=== PATIENT | female | born 1975 | race Caucasian/White ===

== ENCOUNTER 2019-05-28 21:33 | Inpatient (IN) | payer OTHER ==
--- NOTE | 2019-05-28 21:51 | PDOC ---
History of Present Illness - General Stated Complaint: SYNCOPY Time Seen by Provider: 05/28/19 21:50 History Source: Patient Exam Limitations: No Limitations - History of Present Illness Initial Comments: Pt is a 43 yo F, with PMH of prolonged QT (AICD, post V fib arrest 2014), who is presenting via EMS from home after a syncopal episode. Pt is accompanied by her family, who state the pt said "I don't feel well" and then fell to the ground, with 1-2 minutes of generalized shaking, incontinence, and short period of confusion. Pt has never had a seizure, but states she has been taking "about 4 doses of wellbutrin and prozac for an energy boost today," which she has been buying online. Pt has not been compliant with her heart medications ("taking toprol from a friend") and has not seen cardiology since her AICD placement. Pt denies any recent fevers/chills, headache, vision changes, chest pain, palpitations, SOB, nausea/vomiting, abdominal pain, urinary symptoms, diarrhea/ constipation, or leg swelling. Allergies: NKDA PCP: None Cards: [facility] Social: Pt denies any cigarette, alcohol, or illicit drug use. Pt denies any recent travel or sick contacts. Surgical: no relevant history. Family: no relevant history. 05/28/19 23:36 05/29/19 00:02 Past History - Travel Traveled outside of the country in the last 30 days: No Close contact w/someone who was outside of country & ill: No - Past Medical History Allergies/Adverse Reactions: Allergies Allergy/AdvReac Type Severity Reaction Status Date / Time No Known Allergies Allergy Verified 05/08/15 10:08 Home Medications: Ambulatory Orders Amiodarone HCl 200 mg PO BID 05/08/15 Metoprolol Succinate [Toprol XL -] 50 mg PO DAILY 05/08/15 Acetaminophen/Caffeine/Butalb [Fioricet -] 1 tab PO Q6H #28 tablet 05/09/15 Cefuroxime Axetil [Ceftin -] 250 mg PO BID #7 tablet 05/09/15 Seizures: No - Surgical History Cardiac Surgery: Yes (ICD) - Immunization History Immunization Up to Date: Yes - Psycho Social/Smoking Cessation Hx Smoking History: Never smoked Have you smoked in the past 12 months: No If you are a former smoker, when did you quit?: 6 years ago 'Breaking Loose' booklet given: 05/08/15 Hx Alcohol Use: No Drug/Substance Use Hx: No Substance Use Type: None Hx Substance Use Treatment: No Cardiac Specific PMH - Complaint Specific PMHX Angina: No Cardiac Arrhythmia: Yes (prolonged QT) Cardiac Stent: No Myocardial Infarction: No Pacemaker: No (AICD) Review of Systems - Review of Systems Able to Perform ROS?: Yes Is the patient limited [place] proficient: No Constitutional: Yes: Weight Stable. No: Chills, Diaphoresis, Fever, Loss of Appetite, Malaise, Weakness HEENTM: No: Recent change in vision, Nose Congestion, Throat Pain, Throat Swelling, Difficulty Swallowing Respiratory: No: Cough, Orthopnea, Shortness of Breath Cardiac (ROS): Yes: Syncope. No: Chest Pain, Edema, Irregular Heart Rate, Lightheadedness, Palpitations, Chest Tightness ABD/GI: No: Constipated, Diarrhea, Nausea, Poor Appetite, Poor Fluid Intake, Vomiting, Abdominal cramping : No: Burning, Dysuria, Frequency, Pain, Urgency Musculoskeletal: No: Back Pain, Joint Pain, Muscle Pain, Muscle Weakness Integumentary: No: Rash Neurological: Yes: See HPI, Seizure (possible, see HPI). No: Headache, Numbness , Weakness, Unsteady Gait, Dizziness Psychiatric: No: Sleep Pattern Change, Change in Appetite Endocrine: No: Increased Urine, Change in Weight Hematologic/Lymphatic: No: Anemia, Blood Clots, Easy Bleeding, Easy Bruising All Other Systems: Reviewed and Negative *Physical Exam - Vital Signs Last Vital Signs Temp Pulse Resp BP Pulse Ox 98.1 F 86 18 134/85 99 05/28/19 22:09 05/28/19 22:09 05/28/19 22:09 05/28/19 22:09 05/28/19 22:09 - Physical Exam Comments: Vitals stable, pt afebrile. Pt in NAD; thin body habitus. Pt alert and oriented x3. medical billing assistant generally intact, muscular strength and sensation intact. B/l hand tremors and tongue fasciculation No midline spinal tenderness, step-offs, or crepitus. Head normocephalic, atraumatic. Eyes PERRLA, EOMI. Oropharynx without erythema or exudates, no LAD b/l. No nasal congestion. Hearing intact. Clear heart sounds, S1/S2, no JVD, b/l pedal edema, or heart murmur. AICD on L axillary chest wall. Clear lung sounds, no respiratory distress, wheezes, crackles, or accessory muscle use. No abdominal or CVA tenderness to palpation, no rebound, no guarding. Abdomen soft, non-distended, and with normoactive bowel sounds. Skin without jaundice or rash. 05/29/19 00:42 ED Treatment Course - LABORATORY CBC & Chemistry Diagram: 05/28/19 22:15 05/28/19 22:15 - ADDITIONAL ORDERS Additional order review: Laboratory Results 05/28/19 05/28/19 05/28/19 22:55 22:55 22:15 PT with INR INR Sodium Potassium Chloride Carbon Dioxide Anion Gap BUN Creatinine Est GFR (CKD-EPI)AfAm Est GFR (CKD-EPI)NonAf POC Glucometer Random Glucose Calcium Magnesium Total Bilirubin AST ALT Alkaline Phosphatase Creatine Kinase Troponin I Total Protein Albumin Serum , Qual Negative Urine Color Yellow Urine Appearance Clear Urine pH 7.0 Ur Specific [place] 1.020 Urine Protein Negative Urine Glucose (UA) Negative Urine Ketones Negative Urine Blood Negative Urine Nitrite Negative Urine Bilirubin Negative Urine Urobilinogen 0.2 Ur Leukocyte Esterase Trace Opiates Screen Negative Methadone Screen Negative Barbiturate Screen Negative Phencyclidine Screen Negative Ur Amphetamines Screen Negative MDMA (Ecstasy) Screen Positive A* Benzodiazepines Screen Negative Cocaine Screen Negative U Marijuana (THC) Screen Negative 05/28/19 05/28/19 05/28/19 22:15 22:15 22:15 PT with INR 11.60 INR 0.98 Sodium 134 L Potassium 4.1 Chloride 99 Carbon Dioxide 28 Anion Gap 7 L BUN 11.8 Creatinine 0.8 Est GFR (CKD-EPI)AfAm 106.13 Est GFR (CKD-EPI)NonAf 91.57 POC Glucometer Random Glucose 121 H Calcium 7.9 L Magnesium 2.1 Total Bilirubin 0.2 AST 18 ALT 13 Alkaline Phosphatase 117 Creatine Kinase 102 Troponin I < 0.02 Total Protein 6.6 Albumin 3.6 Serum , Qual Urine Color Urine Appearance Urine pH Ur Specific [place] Urine Protein Urine Glucose (UA) Urine Ketones Urine Blood Urine Nitrite Urine Bilirubin Urine Urobilinogen Ur Leukocyte Esterase Opiates Screen Methadone Screen Barbiturate Screen Phencyclidine Screen Ur Amphetamines Screen MDMA (Ecstasy) Screen Benzodiazepines Screen Cocaine Screen U Marijuana (THC) Screen 05/28/19 22:03 PT with INR INR Sodium Potassium Chloride Carbon Dioxide Anion Gap BUN Creatinine Est GFR (CKD-EPI)AfAm Est GFR (CKD-EPI)NonAf POC Glucometer 117 Random Glucose Calcium Magnesium Total Bilirubin AST ALT Alkaline Phosphatase Creatine Kinase Troponin I Total Protein Albumin Serum , Qual Urine Color Urine Appearance Urine pH Ur Specific [place] Urine Protein Urine Glucose (UA) Urine Ketones Urine Blood Urine Nitrite Urine Bilirubin Urine Urobilinogen Ur Leukocyte Esterase Opiates Screen Methadone Screen Barbiturate Screen Phencyclidine Screen Ur Amphetamines Screen MDMA (Ecstasy) Screen Benzodiazepines Screen Cocaine Screen U Marijuana (THC) Screen 05/28/19 05/28/19 22:15 22:03 RBC 3.68 MCV 88.4 MCHC 33.9 RDW 13.4 MPV 8.0 Neutrophils % 78.9 Lymphocytes % 13.9 D Monocytes % 6.7 Eosinophils % 0.0 D Basophils % 0.5 POC Glucometer 117 - RADIOLOGY Radiology Studies Ordered: Category Date Time Status CHEST PA & LAT [RAD] Stat Radiology 05/28/19 21:52 Taken - Medications Given in the ED: ED Medications Discontinued Medications Generic Name Dose Route Start Last Admin Trade Name Freq PRN Reason Stop Dose Admin Diazepam 5 mg 05/28/19 22:28 05/28/19 22:40 Valium - PO 05/28/19 22:29 5 mg ONCE ONE Administration Sodium Chloride 1,000 mls @ 1,000 mls/hr 05/28/19 22:12 05/28/19 22:14 Normal Saline - IV 05/28/19 23:11 1,000 mls/hr ASDIR STA Administration Levetiracetam 1,000 mg 05/29/19 00:03 05/29/19 00:34 Keppra Injection - IVPB 05/29/19 00:04 1,000 mg ONCE ONE Administration Medical Decision Making - Medical Decision Making Pt was seen at bedside, also will be seen by attending Dr. Rowley. Pt presenting with via EMS after syncope vs seizure. Pt had generalized shaking with post- ictal/incontinence. Pt has been using QT-prolonging medications. Pt does not complain of chest pain and did not have any preceding palpitations, unlikely defibrillation. Provided 1 L IV NS and 5 mg PO valium for improvement of likely withdrawal and hydration. Will continue to reassess pt and monitor for symptomatic improvement. ECG: NSR, prolonged QTc (HR 86, ND 186, QRS 110, QTc 528). No TWIs or significant ST segment changes. Prolonged QTc from prior (499, done 05/08/2015) CBC and CMP WNL. Serum negative. UA negative for infection. Utox positive for MDMA [employer] was called, will send results of AICD activity in the morning. Device not compatible with our interrogation system. Pt being taken for CT head and chest x-ray. CT head negative for masses, bleeds. Providing 1 g keppra loading dose for concern of long keppra half life; concern for possible continued seizure activity. Chest x-ray clear with no infiltrates or cardiomegaly Paging hospitalist team for admission, as pt had syncopy vs seizure of unknown origin. Pt requires telemetry monitoring for further observation and to arrange to see cardiology, neurology, psychiatry. 05/28/19 23:37 05/29/19 00:44 Pt admitted to hospitalist team (Dr. Gil). Pt hemodynamically stable with no further seizure activity or syncopal episodes. 05/29/19 01:13 Discharge - Discharge Information Problems reviewed: Yes Clinical Impression/Diagnosis: Syncope and collapse, History of implantable cardioverter-defibrillator (ICD) placement, Prolonged QT syndrome Condition: Stable - Admission Yes - Follow up/Referral - Patient Discharge Instructions - Post Discharge Activity
--- NOTE | 2019-05-28 21:53 | PDOC ---
Attending Attestation - Resident Resident Name: Vernell Abreu - ED Attending Attestation I have performed the following: I have examined & evaluated the patient, The case was reviewed & discussed with the resident, I agree w/resident's findings & plan - HPI HPI: 05/28/19 22:39 Pt "passed out" at home; not witnessed by sibs or mom. Pt has a hx of a defibrillator placed in 2014; pt has no CP at this time SHe had seizure activity at home. SHe had urinary incontinence. She takes wellbutrin and prozac and she may have caused a decrease in her seizure threshold as a result of the wellbutrin - Physicial Exam PE: 05/28/19 23:33 Agree with resident exam. Pt is shaky; appears to be withdrawing from sedative type medication. Dry mucus menbranes. Afebrile Abd soft NT ND Lungs clear. HR S1S2 RRR Pt is neurologically intact. Answering all questions. Reflexes equal throughout. - Medical Decision Making 05/28/19 23:04 Pt's labs are all WNL. Trop is 0.02. CPK is only 100. Pt may not have had a seizure either. She is dry mouth and dehydrated and she may have just had a vasovagal syncope. I called [employer], and they will be calling me back for a commissary representative of theirs to query patient's defibrillator. Her defibrillator is not compatible with the [employer] query sytem thru the telephone lines. 05/28/19 23:39 Pt will be admitted to hospitalist to the tele unit 05/29/19 00:10 Patient Name: JULIA LAUREN THIS IS A PRELIMINARY REPORT FROM [facility] DATE OF SERVICE: 2019-05-28 23:33:26 IMAGES: 146 EXAM: HEAD CT WITHOUT CONTRAST HISTORY: New onset seizure COMPARISON: None. FINDINGS: No acute intracranial abnormalities identified. No mass. No obvious infarct. No hemorrhage. No hydrocephalus shift or herniation. Osseous structures are intact. Advanced mucosal thickening and/or fluid is noted in the bilateral maxillary sinuses and in the right ethmoid sinuses. There is a bubbly pattern in the left maxillary sinus. This could be seen with sinusitis possibly even fungal sinusitis. Recommend evaluation.
[2019-05-28] MEDS ORDERED: SODIUM CHLORIDE 1,000 ML IV STA (22:12)
[2019-05-28 22:17] VITALS: BMI 20.9
[2019-05-28] MEDS ORDERED: diazePAM 5 MG TABLET PO ONE (22:28)
[2019-05-28] MEDS ORDERED: diazePAM 5 MG TABLET ONE (22:35)
[2019-05-28 22:39] LABS: BASO % 0.5 % (0-2.0); HEMATOCRIT 32.5 % (32.4-45.2); LYMPH % 13.9 % (8-40); MCHC 33.9 g/dl (32.0-36.0); MEAN CELL VOLUME 88.4 fl (80-96); MONO % 6.7 % (3.8-10.2); NEUT % 78.9 % (42.8-82.8); PLATELET COUNT 238 K/MM3 (134-434); RBC 3.68 M/mm3 (3.60-5.2); RDW 13.4 % (11.6-15.6); WHITE BLOOD COUNT 5.8 K/mm3 (4.0-10.0)
[2019-05-28] MEDS ORDERED: FOLIC ACID INJECTION - 1 MG, THIAMINE HCL 100 MG, MULTIVIT INJECTION ADULT 10 ML in SOD... IVPB ONE (22:41)
--- NOTE | 2019-05-28 22:45 | PDOC ---
*Physical Exam - Vital Signs Last Vital Signs Temp Pulse Resp BP Pulse Ox 98.1 F 86 18 134/85 99 05/28/19 22:09 05/28/19 22:09 05/28/19 22:09 05/28/19 22:09 05/28/19 22:09 ED Treatment Course - LABORATORY CBC & Chemistry Diagram: 05/28/19 22:15 05/28/19 22:15 - ADDITIONAL ORDERS Additional order review: Laboratory Results 05/28/19 22:03 POC Glucometer 117 05/28/19 22:03 POC Glucometer 117 - RADIOLOGY Radiology Studies Ordered: Category Date Time Status HEAD CT WITHOUT CONTRAST [CT] Stat CT Scan 05/28/19 22:34 Ordered Medical Decision Making - Medical Decision Making 05/28/19 22:36 Patient seen and evaluated as pre-attending with Dr. Abreu (PGY-2) and Dr. Rowley (Attending) 43 y/o female with a PMHx of Long QT syndrome (s/p AICD 4 years previous) BIBEM after syncopal vs. seizure. Patient has limited recall of what occured but states states she was feeling lightheaded this morning and reports she saw an animal with a long tail and a bird in her bedroom. She next remembers EMS in her house. Patient reports she took 4 Wellbutrin pills today to increase her energy in addition to her daily home medications of Prozac and Metoprolol. Cannot recall the name of the doctor who prescribed her Prozac and Metoprolol and states she received her Wellbutrin following an online consultation with a doctor. Subsequently states she receives Metoprolol from a friend. Does not take Wellbutrin daily but PRN for increased energy. Mother reports that patient was c/o being dry all day and then suddenly fell to the ground with tonic clonic movements of her UE. 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 Nursing staff provides additional information that patient used to work @ [employer] [facility] 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 VS unremarkable, has facial and UE fasciculation, appears older than stated age. Concern for cardiac event vs. drug withdrawal seizure Plan to CT head, interrogate AICD and admit. 05/28/19 22:53 Call placed to [facility] ED, as per [facility] ED, patient had polymorphic VTach/ Torsades x2 w/AICD ([employer]) placed on 05/04/2015 Patient had initially been evaluated in our ED in 04/27/2015 for VFib w/ subsequent cardiac arrest, EKG showed Prol[facility]ed [facility] > [facility] 01:13 Patient accepted to hospitalist medicine service for further evaluation. Clinical Impression: Seizure, likely 2/2 to Buproprion withdrawal Discharge - Discharge Information Problems reviewed: Yes Clinical Impression/Diagnosis: Syncope and collapse, History of implantable cardioverter-defibrillator (ICD) placement, Prolonged QT syndrome Condition: Stable - Admission Yes - Follow up/Referral - Patient Discharge Instructions - Post Discharge Activity
[2019-05-28 22:53] LABS: INR 0.98 (0.83-1.09); PROTHROMBIN TIME (PATIENT) 11.6 SEC (9.7-13.0)
[2019-05-28 23:00] LABS: ALBUMIN 3.6 g/dl (3.4-5.0); BILIRUBIN,TOTAL 0.2 mg/dL (0.2-1); BLOOD UREA NITROGEN 11.8 mg/dL (7-18); CALCIUM 7.9 mg/dL (8.5-10.1); CREATININE 0.8 mg/dL (0.55-1.3); MAGNESIUM 2.1 mg/dL (1.8-2.4); POTASSIUM 4.1 mmol/L (3.5-5.1); TOT PROT 6.6 g/dl (6.4-8.2)
[2019-05-28 23:30] LABS: URINE APPEARANCE Clear; URINE BILIRUBIN Negative (NEGATIVE); URINE COLOR Yellow; URINE GLUCOSE (UA) Negative (NEGATIVE); URINE KETONE Negative (NEGATIVE); URINE LEUK ESTERASE Trace (NEGATIVE); URINE NITRITE Negative (NEGATIVE); URINE PROTEIN Negative (NEGATIVE); URINE UROBILINOGEN 0.2 mg/dL (0.2-1.0)
[2019-05-28 23:43] LABS: COCAINE, UR NEGATIVE ng/ml (CUTOFF=300); METHADONE, UR NEGATIVE ng/ml (CUTOFF=300); OPIATES, URI NEGATIVE ng/ml (CUTOFF=300); PHENCYCLIDINE,URINE NEGATIVE ng/ml (CUTOFF=25); URINE AMPHETAMINES NEGATIVE ng/ml (CUTOFF=500); URINE BARBITURATES NEGATIVE ng/ml (CUTOFF=200); URINE BENZODIAZEPINES NEGATIVE ng/ml (CUTOFF=200)
[2019-05-29] MEDS ORDERED: levETIRAcetam 500 MG/5 ML INJECTION VIAL IVPB ONE ×2 (00:03→00:25)
--- NOTE | 2019-05-29 02:09 | PN ---
Teaching Attending Note Name of Resident: Daysi Marlow ATTENDING PHYSICIAN STATEMENT I saw and evaluated the patient. I reviewed the resident's note and discussed the case with the resident. I agree with the resident's findings and plan as documented. SUBJECTIVE: 43yo woman with long qt syndrome s/p cardiac arrest and aicd placement in 2014, no cardiology f/u has been taking prozac and recently started taking Welbutrin to help her quit smoking. She reported taking 3 tabs of 150mg Welbutrin yesterday, along with her Prozac. She had aura of animals in her room, LOC around evening time, woke up confused, having urinated herself. Denied any headache. Unspecified time LOC. She denied taking ecstasy although her utox was positive for it. OBJECTIVE: Last Vital Signs Temp Pulse Resp BP Pulse Ox 98.1 F 86 18 134/85 99 05/28/19 22:09 05/28/19 22:09 05/28/19 22:09 05/28/19 22:09 05/28/19 22:09 gen -nad, aaox3 heent -atraumatic, perrla , no tongue biting neck supple cv-s1+s2+ rrr chest left sided aicd in place ext - no pedal edema Abnormal Lab Results 05/28/19 05/28/19 22:15 22:55 Sodium 134 L Anion Gap 7 L Random Glucose 121 H Calcium 7.9 L MDMA (Ecstasy) Screen Positive A* ekg showed long qtc ct- no acute insults ASSESSMENT AND PLAN: #S/p seizure episode x1, likely induced by high dose welbutrin + ecstasy. First time seizure episode. head ct wnl. -telemetry -avoid ecstasy -avoid welbutrin -monitor electrolytes -iv fluid hdyration -neuro eval #Prolonged qtc syndrome s/p aicd - noncompliant w/ f/u -cardiology consult for aicd interrogation -avoid qtc prolonging agents #Hyponatremia- may be secondary to ecstasy , siadh -iv fluid hydration -repeat chemistry dvt -scds
--- NOTE | 2019-05-29 08:07 | HP ---
CHIEF COMPLAINT: Seizure PCP: needs referral Cardiology: [place] HISTORY OF PRESENT ILLNESS: Pt is a 43 yo F, with PMH of prolonged QT (AICD- [facility] had polymorphic vtac and torsades, post V fib arrest 2014), who is presenting via EMS from home after a seizure episode. The patient does not remember the event, but she relayed the story as it was told to her by her family members. Patient's family reports she fell to the ground and had 1-2 minutes of generalized shaking, LOC, and urinary incontinence followed by a short period of confusion. Pt has never had a seizure, but states she has been taking "about 4 doses of wellbutrin and prozac for an energy boost today," which she has been buying online. Pt has not been compliant with her heart medications ("taking toprol from a friend") and has not seen cardiology since her AICD placement 4 years ago. Pt denies any recent fevers/chills, headache, vision changes, chest pain, palpitations, SOB, nausea/vomiting, abdominal pain, urinary symptoms, diarrhea/constipation, or leg swelling. ER course was notable for: (1)ECG: NSR, prolonged QTc (HR 86, AR 186, QRS 110, QTc 528). No TWIs or significant ST segment changes. Prolonged QTc from prior (499, done 05/08/2015) (2)UA negative for infection. Utox positive for MDMA (3)Providing 1 g keppra loading dose for concern of long keppra half life; concern for possible continued seizure activity. In ED: [employer] was called and stated they will send results of AICD activity in the morning as the device is not compatible with our interrogation system. Recent Travel: denies PAST MEDICAL HISTORY: prolonged QT s/p AICD ([facility] had polymorphic vtac and torsades) post V fib arrest 2014 PAST SURGICAL HISTORY: AICD placement in 2014 Social History: Smoking: former smoker, wellbutrin to quit now only smokes cigarette occasionally (quit 4mo ago). Alcohol: denies Drugs: denies Allergies No Known Allergies Allergy (Verified 05/29/19 01:50) HOME MEDICATIONS: Home Medications Medication Instructions Recorded Bupropion HCl [Bupropion Xl] 150 mg PO ONCE 05/29/19 Fluoxetine HCl [Prozac] 40 mg PO DAILY 05/29/19 REVIEW OF SYSTEMS CONSTITUTIONAL: malaise Absent: fever, chills, diaphoresis, generalized weakness, , loss of appetite, weight change HEENT: Absent: rhinorrhea, nasal congestion, throat pain, throat swelling, difficulty swallowing, mouth swelling, ear pain, eye pain, visual changes CARDIOVASCULAR: Absent: chest pain, syncope, palpitations, irregular heart rate, lightheadedness , peripheral edema RESPIRATORY: Absent: cough, shortness of breath, dyspnea with exertion, orthopnea, wheezing, stridor, hemoptysis GASTROINTESTINAL: Absent: abdominal pain, abdominal distension, nausea, vomiting, diarrhea, constipation, melena, hematochezia GENITOURINARY: incontinence Absent: dysuria, frequency, urgency, hesitancy, hematuria, flank pain, genital pain MUSCULOSKELETAL: Absent: myalgia, arthralgia, joint swelling, back pain, neck pain SKIN: Absent: rash, itching, pallor HEMATOLOGIC/IMMUNOLOGIC: Absent: easy bleeding, easy bruising, lymphadenopathy, frequent infections ENDOCRINE: Absent: unexplained weight gain, unexplained weight loss, heat intolerance, cold intolerance NEUROLOGIC: Absent: headache, focal weakness or paresthesias, dizziness, unsteady gait, seizure, mental status changes, bladder or bowel incontinence PSYCHIATRIC: Absent: anxiety, depression, suicidal or homicidal ideation, hallucinations. PHYSICAL EXAMINATION Vital Signs - 24 hr 05/28/19 05/29/19 05/29/19 22:09 03:06 06:11 Temperature 98.1 F Pulse Rate 86 62 Respiratory 18 20 Rate Blood Pressure 134/85 99/56 L O2 Sat by Pulse 99 96 Oximetry (%) GENERAL: Awake, alert, and fully oriented, in no acute distress. HEAD: Normal with no signs of trauma. EYES: Pupils equal, round and reactive to light, extraocular movements intact, sclera anicteric, conjunctiva clear. No lid lag. Horizontal nystagmus with beats to right when looking left. EARS, NOSE, THROAT: Ears normal, nares patent, oropharynx clear without exudates. Dry mucous membranes, poor dentition with multiple cavities and missing teeth towards the back, did NOT bite tongue NECK: Normal range of motion, supple without lymphadenopathy, JVD, or masses. LUNGS: Breath sounds equal, clear to auscultation bilaterally. No wheezes, and no crackles. No accessory muscle use. HEART: Regular rate and rhythm, normal S1 and S2 without murmur, rub or gallop. L side AICD in place. ABDOMEN: Soft, nontender, not distended, normoactive bowel sounds, no guarding, no rebound, no masses. No hepatomegaly or splenomegaly. MUSCULOSKELETAL: Normal range of motion at all joints. No bony deformities or tenderness. No CVA tenderness. UPPER EXTREMITIES: 2+ pulses, warm, well-perfused. No cyanosis. No clubbing. No peripheral edema. sensation intact bilaterally, 1+ reflexes LOWER EXTREMITIES: 2+ pulses, warm, well-perfused. No calf tenderness. No peripheral edema. Sensation intact bilaterally, hyperreflexia bilaterally NEUROLOGICAL: Cranial nerves II-XII intact. Normal speech. Normal gait. PSYCHIATRIC: Cooperative. Good eye contact. Appropriate mood and affect. SKIN: Warm, dry, normal turgor, no rashes or lesions noted, normal capillary refill. Laboratory Results - last 24 hr 05/28/19 05/28/19 05/28/19 22:03 22:15 22:15 WBC 5.8 RBC 3.68 Hgb 11.0 Hct 32.5 MCV 88.4 MCH 30.0 MCHC 33.9 RDW 13.4 Plt Count 238 D MPV 8.0 Absolute Neuts (auto) 4.5 Neutrophils % 78.9 Lymphocytes % 13.9 D Monocytes % 6.7 Eosinophils % 0.0 D Basophils % 0.5 Nucleated RBC % 0 PT with INR INR Sodium Potassium Chloride Carbon Dioxide Anion Gap BUN Creatinine Est GFR (CKD-EPI)AfAm Est GFR (CKD-EPI)NonAf POC Glucometer 117 Random Glucose Calcium Magnesium Total Bilirubin AST ALT Alkaline Phosphatase Creatine Kinase 102 Troponin I < 0.02 Total Protein Albumin Serum , Qual Urine Color Urine Appearance Urine pH Ur Specific Blanch Urine Protein Urine Glucose (UA) Urine Ketones Urine Blood Urine Nitrite Urine Bilirubin Urine Urobilinogen Ur Leukocyte Esterase Salicylates Opiates Screen Methadone Screen Acetaminophen Barbiturate Screen Phencyclidine Screen Ur Amphetamines Screen MDMA (Ecstasy) Screen Benzodiazepines Screen Cocaine Screen U Marijuana (THC) Screen Alcohol, Quantitative 05/28/19 05/28/19 05/28/19 22:15 22:15 22:15 WBC RBC Hgb Hct MCV MCH MCHC RDW Plt Count MPV Absolute Neuts (auto) Neutrophils % Lymphocytes % Monocytes % Eosinophils % Basophils % Nucleated RBC % PT with INR 11.60 INR 0.98 Sodium 134 L Potassium 4.1 Chloride 99 Carbon Dioxide 28 Anion Gap 7 L BUN 11.8 Creatinine 0.8 Est GFR (CKD-EPI)AfAm 106.13 Est GFR (CKD-EPI)NonAf 91.57 POC Glucometer Random Glucose 121 H Calcium 7.9 L Magnesium 2.1 Total Bilirubin 0.2 AST 18 ALT 13 Alkaline Phosphatase 117 Creatine Kinase Troponin I Total Protein 6.6 Albumin 3.6 Serum , Qual Negative Urine Color Urine Appearance Urine pH Ur Specific Blanch Urine Protein Urine Glucose (UA) Urine Ketones Urine Blood Urine Nitrite Urine Bilirubin Urine Urobilinogen Ur Leukocyte Esterase Salicylates Opiates Screen Methadone Screen Acetaminophen Barbiturate Screen Phencyclidine Screen Ur Amphetamines Screen MDMA (Ecstasy) Screen Benzodiazepines Screen Cocaine Screen U Marijuana (THC) Screen Alcohol, Quantitative 05/28/19 05/28/19 05/29/19 22:55 22:55 01:05 WBC RBC Hgb Hct MCV MCH MCHC RDW Plt Count MPV Absolute Neuts (auto) Neutrophils % Lymphocytes % Monocytes % Eosinophils % Basophils % Nucleated RBC % PT with INR INR Sodium Potassium Chloride Carbon Dioxide Anion Gap BUN Creatinine Est GFR (CKD-EPI)AfAm Est GFR (CKD-EPI)NonAf POC Glucometer Random Glucose Calcium Magnesium Total Bilirubin AST ALT Alkaline Phosphatase Creatine Kinase Troponin I Total Protein Albumin Serum , Qual Urine Color Yellow Urine Appearance Clear Urine pH 7.0 Ur Specific Blanch 1.020 Urine Protein Negative Urine Glucose (UA) Negative Urine Ketones Negative Urine Blood Negative Urine Nitrite Negative Urine Bilirubin Negative Urine Urobilinogen 0.2 Ur Leukocyte Esterase Trace Salicylates < 1.7 L Opiates Screen Negative Methadone Screen Negative Acetaminophen Barbiturate Screen Negative Phencyclidine Screen Negative Ur Amphetamines Screen Negative MDMA (Ecstasy) Screen Positive A* Benzodiazepines Screen Negative Cocaine Screen Negative U Marijuana (THC) Screen Negative Alcohol, Quantitative 05/29/19 05/29/19 01:05 01:05 WBC RBC Hgb Hct MCV MCH MCHC RDW Plt Count MPV Absolute Neuts (auto) Neutrophils % Lymphocytes % Monocytes % Eosinophils % Basophils % Nucleated RBC % PT with INR INR Sodium Potassium Chloride Carbon Dioxide Anion Gap BUN Creatinine Est GFR (CKD-EPI)AfAm Est GFR (CKD-EPI)NonAf POC Glucometer Random Glucose Calcium Magnesium Total Bilirubin AST ALT Alkaline Phosphatase Creatine Kinase Troponin I Total Protein Albumin Serum , Qual Urine Color Urine Appearance Urine pH Ur Specific Blanch Urine Protein Urine Glucose (UA) Urine Ketones Urine Blood Urine Nitrite Urine Bilirubin Urine Urobilinogen Ur Leukocyte Esterase Salicylates Opiates Screen Methadone Screen Acetaminophen <2.0 Barbiturate Screen Phencyclidine Screen Ur Amphetamines Screen MDMA (Ecstasy) Screen Benzodiazepines Screen Cocaine Screen U Marijuana (THC) Screen Alcohol, Quantitative < 3.0 Imaging: CT head negative for masses, bleeds. Chest x-ray clear with no infiltrates or cardiomegaly ASSESSMENT/PLAN: Pt is a 43 yo F, with PMH of prolonged QT (AICD- [facility] had polymorphic vtac and torsades, post V fib arrest 2014), who is presenting via EMS from home after a seizure episode. #Seizure -telemetry - patient counselled on the dangers of ordering medications from the internet, or taking medicines that belong to friends. Counseled on avoiding drugs like MDMA. -avoid welbutrin -monitor electrolytes -iv fluid hdyration -neuro consult #Prolonged qtc syndrome s/p aicd - noncompliant with follow up care -cardiology consult for aicd interrogation -avoid qtc prolonging agents #Hyponatremia -iv fluid hydration -repeat chemistry dvt -scds Visit type - Emergency Visit Emergency Visit: Yes ED Registration Date: 05/29/19 Care time: The patient presented to the Emergency Department on the above date and was hospitalized for further evaluation of their emergent condition. - New Patient This patient is new to me today: Yes Date on this admission: 05/29/19 - Critical Care Critical Care patient: No ATTENDING PHYSICIAN STATEMENT I saw and evaluated the patient. I reviewed the resident's note and discussed the case with the resident. I agree with the resident's findings and plan as documented. SUBJECTIVE: OBJECTIVE: ASSESSMENT AND PLAN:
--- NOTE | 2019-05-29 08:13 | PN ---
Progress Note (short form) - Note Progress Note: Subjective: no fever or chills. denies any CP or SOB. denies dizziness. she reports feeling dizzy ( can't specify ) before her LOC. Also, she saw a bird that no one else saw before she passed out. she woke up wet. not clear of duration of LOC. denies taking Ecstasy but thinks the positive urine is frm a tea that she takes ( [place] she does not provide the name of the tea Objective: Vital Signs: Last Vital Signs Temp Pulse Resp BP Pulse Ox 98.1 F 62 20 99/56 L 96 05/28/19 22:09 05/29/19 06:11 05/29/19 06:11 05/29/19 06:11 05/29/19 03:06 Laboratory Results - last 24 hr 05/28/19 05/28/19 05/28/19 22:03 22:15 22:15 WBC 5.8 RBC 3.68 Hgb 11.0 Hct 32.5 MCV 88.4 MCH 30.0 MCHC 33.9 RDW 13.4 Plt Count 238 D MPV 8.0 Absolute Neuts (auto) 4.5 Neutrophils % 78.9 Lymphocytes % 13.9 D Monocytes % 6.7 Eosinophils % 0.0 D Basophils % 0.5 Nucleated RBC % 0 PT with INR INR Sodium Potassium Chloride Carbon Dioxide Anion Gap BUN Creatinine Est GFR (CKD-EPI)AfAm Est GFR (CKD-EPI)NonAf POC Glucometer 117 Random Glucose Calcium Magnesium Total Bilirubin AST ALT Alkaline Phosphatase Creatine Kinase 102 Troponin I < 0.02 Total Protein Albumin Serum , Qual Urine Color Urine Appearance Urine pH Ur Specific Greer Urine Protein Urine Glucose (UA) Urine Ketones Urine Blood Urine Nitrite Urine Bilirubin Urine Urobilinogen Ur Leukocyte Esterase Salicylates Opiates Screen Methadone Screen Acetaminophen Barbiturate Screen Phencyclidine Screen Ur Amphetamines Screen MDMA (Ecstasy) Screen Benzodiazepines Screen Cocaine Screen U Marijuana (THC) Screen Alcohol, Quantitative 05/28/19 05/28/19 05/28/19 22:15 22:15 22:15 WBC RBC Hgb Hct MCV MCH MCHC RDW Plt Count MPV Absolute Neuts (auto) Neutrophils % Lymphocytes % Monocytes % Eosinophils % Basophils % Nucleated RBC % PT with INR 11.60 INR 0.98 Sodium 134 L Potassium 4.1 Chloride 99 Carbon Dioxide 28 Anion Gap 7 L BUN 11.8 Creatinine 0.8 Est GFR (CKD-EPI)AfAm 106.13 Est GFR (CKD-EPI)NonAf 91.57 POC Glucometer Random Glucose 121 H Calcium 7.9 L Magnesium 2.1 Total Bilirubin 0.2 AST 18 ALT 13 Alkaline Phosphatase 117 Creatine Kinase Troponin I Total Protein 6.6 Albumin 3.6 Serum , Qual Negative Urine Color Urine Appearance Urine pH Ur Specific [place] Urine Protein Urine Glucose (UA) Urine Ketones Urine Blood Urine Nitrite Urine Bilirubin Urine Urobilinogen Ur Leukocyte Esterase Salicylates Opiates Screen Methadone Screen Acetaminophen Barbiturate Screen Phencyclidine Screen Ur Amphetamines Screen MDMA (Ecstasy) Screen Benzodiazepines Screen Cocaine Screen U Marijuana (THC) Screen Alcohol, Quantitative 05/28/19 05/28/19 05/29/19 22:55 22:55 01:05 WBC RBC Hgb Hct MCV MCH MCHC RDW Plt Count MPV Absolute Neuts (auto) Neutrophils % Lymphocytes % Monocytes % Eosinophils % Basophils % Nucleated RBC % PT with INR INR Sodium Potassium Chloride Carbon Dioxide Anion Gap BUN Creatinine Est GFR (CKD-EPI)AfAm Est GFR (CKD-EPI)NonAf POC Glucometer Random Glucose Calcium Magnesium Total Bilirubin AST ALT Alkaline Phosphatase Creatine Kinase Troponin I Total Protein Albumin Serum , Qual Urine Color Yellow Urine Appearance Clear Urine pH 7.0 Ur Specific [place] 1.020 Urine Protein Negative Urine Glucose (UA) Negative Urine Ketones Negative Urine Blood Negative Urine Nitrite Negative Urine Bilirubin Negative Urine Urobilinogen 0.2 Ur Leukocyte Esterase Trace Salicylates < 1.7 L Opiates Screen Negative Methadone Screen Negative Acetaminophen Barbiturate Screen Negative Phencyclidine Screen Negative Ur Amphetamines Screen Negative MDMA (Ecstasy) Screen Positive A* Benzodiazepines Screen Negative Cocaine Screen Negative U Marijuana (THC) Screen Negative Alcohol, Quantitative 05/29/19 05/29/19 01:05 01:05 WBC RBC Hgb Hct MCV MCH MCHC RDW Plt Count MPV Absolute Neuts (auto) Neutrophils % Lymphocytes % Monocytes % Eosinophils % Basophils % Nucleated RBC % PT with INR INR Sodium Potassium Chloride Carbon Dioxide Anion Gap BUN Creatinine Est GFR (CKD-EPI)AfAm Est GFR (CKD-EPI)NonAf POC Glucometer Random Glucose Calcium Magnesium Total Bilirubin AST ALT Alkaline Phosphatase Creatine Kinase Troponin I Total Protein Albumin Serum , Qual Urine Color Urine Appearance Urine pH Ur Specific [place]er Urine Protein Urine Glucose (UA) Urine Ketones Urine Blood Urine Nitrite Urine Bilirubin Urine Urobilinogen Ur Leukocyte Esterase Salicylates Opiates Screen Methadone Screen Acetaminophen <2.0 Barbiturate Screen Phencyclidine Screen Ur Amphetamines Screen MDMA (Ecstasy) Screen Benzodiazepines Screen Cocaine Screen U Marijuana (THC) Screen Alcohol, Quantitative < 3.0 Physical Exam: NAD, awake, alert. cooperative. MMM, no LAP in neck . slightly ertyhematous oropharynx. no edema in uvula. CV: RRR, no MRG LUngs: CTAB Abd: soft, NT, ND , NL BS . reducible small umbilical hernia ( 1 cm ) Ext: No edema or erythema, no track rodas. DP and RP 2+ b/l. no rash. AICS felt under the skin in L lower posterior axillary area Imaging: Cxray reviewed. CT head report pending read EKG: sinus , QTC. 500, Nl [place], No ST or TW changes Assessment/Plan: 43 y/o lady with h/o depression, Long QTC, s/p V Fib arrest in 2014. s/p AICD placement, who presented with LOC. 1- LOC: suspected seizure activity ( aura, urinary incontinence, LOC in setting of positive ecstasy in urine and wellbutrin over dose). No reported shocks per patient before LOC. still need to r/o arrhythmias. - Nl neuro exam. - obtain orthostatic VS - hold off any AED - tele monitoring ( no events over night ) - ICD interrogation: d/w Tech, No shocks since placement - IVF. - order EEG - neuro eval. ? MRI 2- + Ecstasy in urine: patient denies use. Literature searched. Wellbutrin and prozac can cause false positive esctasy testing. - Monitor on tele - no LFTs abnormalities, No tachycardia, no severe HTN. - Sodium is slightly low. Ecstacy use can cause hyponatremia. monitor 3- Wellbutrin over dose: she does not remember the time of ingestion ( in evening last night ) . doubt that seizures were caused by this ingestion. - I called poison control center. 24 hour tele from last ingestion recommended . - activated charcoal x 1 is recommended ( 1g/kg) - will check CMP and electrolytes this am 4- H/o depression. - was started on prozac a month ago. will hold todays dose, and probably cont tomorrow - will dc wellbutrin ( for smoking) 5- DVT PX: lovenox Visit type - Emergency Visit Emergency Visit: Yes ED Registration Date: 05/29/19 Care time: The patient presented to the Emergency Department on the above date and was hospitalized for further evaluation of their emergent condition. - New Patient This patient is new to me today: Yes Date on this admission: 05/29/19 - Critical Care Critical Care patient: No
[2019-05-29 08:34] VITALS: TEMP 98.3
[2019-05-29] MEDS ORDERED: ACTIVATED CHARCOAL 260 MG CAPSULE PO ONE (08:45)
[2019-05-29] MEDS ORDERED: CHARCOAL/SORBITOL SOLUTION 25 GM/120 ML BTL PO ONE (08:54)
[2019-05-29 09:07] LABS: BASO % 0.4 % (0-2.0); HEMATOCRIT 31.1 % (32.4-45.2); HEMOGLOBIN 10.5 GM/dL (10.7-15.3); LYMPH % 26.1 % (8-40); MCHC 33.8 g/dl (32.0-36.0); MEAN CELL VOLUME 88.7 fl (80-96); MONO % 10.2 % (3.8-10.2); NEUT % 63.3 % (42.8-82.8); PLATELET COUNT 196 K/MM3 (134-434); RDW 13.7 % (11.6-15.6); WHITE BLOOD COUNT 4.6 K/mm3 (4.0-10.0)
[2019-05-29 09:35] LABS: ALBUMIN 3.1 g/dl (3.4-5.0); BILIRUBIN,TOTAL 0.4 mg/dL (0.2-1); BLOOD UREA NITROGEN 7.9 mg/dL (7-18); CALCIUM 7.9 mg/dL (8.5-10.1); CREATININE 0.7 mg/dL (0.55-1.3); MAGNESIUM 2.1 mg/dL (1.8-2.4); PHOSPHOROUS 3.6 mg/dL (2.5-4.9); POTASSIUM 4.3 mmol/L (3.5-5.1); TOT PROT 5.8 g/dl (6.4-8.2)
[2019-05-29] MEDS ORDERED: ENOXAPARIN NA (PORCINE) 40 MG/0.4 ML DISP.SYRIN SQ SCH (10:00)
[2019-05-29 10:46] VITALS: BP 114/70; PULSE 78
--- NOTE | 2019-05-29 11:27 | EKG ---
Test Reason : Blood Pressure : / mmHG Vent. Rate : 064 BPM Atrial Rate : 064 BPM P-R Int : 168 ms QRS Dur : 092 ms QT Int : 502 ms P-R-T Axes : 054 059 052 degrees QTc Int : 517 ms NORMAL SINUS RHYTHM PROLONGED QT ABNORMAL ECG WHEN COMPARED WITH ECG OF 28-MAY-2019 22:11, T WAVE INVERSION NO LONGER EVIDENT IN ANTERIOR LEADS Confirmed by KELLY ROBERTSON, SAAD ([id number]) on 05/29/2019 11:26:43 AM Referred By: Stlain RHODES Confirmed By:SAAD MENDOZA MD
--- NOTE | 2019-05-29 11:32 | EKG ---
Test Reason : Blood Pressure : / mmHG Vent. Rate : 086 BPM Atrial Rate : 086 BPM P-R Int : 186 ms QRS Dur : 110 ms QT Int : 442 ms P-R-T Axes : 059 049 054 degrees QTc Int : 528 ms NORMAL SINUS RHYTHM PROLONGED QT RIGHT BUNDLE BRANCH BLOCK NONSPECIFIC ST ABNORMALITY ABNORMAL ECG Confirmed by SAAD MENDOZA MD ([id number]) on 05/29/2019 11:32:17 AM Referred By: Confirmed By:SAAD MENDOZA MD
--- NOTE | 2019-05-29 18:23 | CON.NEURO ---
Consult Consult Specialty:: [place] Referred by:: ER Reason for Consultation:: Seizure - History of Present Illness History of Present Illness: 43 years old woman with hx of Cardiac Arrhythmia OA Headache Depression Came in afetr she had a seizure Patient with ext cardiac hx s/po Cardiac arrest I came to see [facility] patient to find she was signed out AMA - History Source History Provided By: Medical Record Limitations to Obtaining History: Uncooperative - Past Medical History Cardio/Vascular: Yes: Other (ventricular fibrillation) ...: No - Past Surgical History Past Surgical History: Yes: AICD - Alcohol/Substance Use Hx Alcohol Use: No History of Substance Use: reports: None - Smoking History Smoking history: Former smoker Have you smoked in the past 12 months: No Aproximately how many cigarettes per day: 1 If you are a former smoker, when did you quit?: 6 years ago - Social History ADL: Independent History of Recent Travel: No Home Medications - Allergies Allergies/Adverse Reactions: Allergies Allergy/AdvReac Type Severity Reaction Status Date / Time No Known Allergies Allergy Verified 05/29/19 01:50 - Home Medications Home Medications: Ambulatory Orders Fluoxetine HCl [Prozac] 40 mg PO DAILY 05/29/19 Family Medical History Family History: Unable to Obtain Physical Exam-Neuro Vital Signs: Vital Signs Temperature 98.3 F 05/29/19 08:31 Pulse Rate 78 05/29/19 08:36 Respiratory Rate 18 05/29/19 08:31 Blood Pressure 114/70 05/29/19 08:36 O2 Sat by Pulse Oximetry (%) 97 05/29/19 08:21 Labs: CBC, BMP 05/29/19 08:50 05/29/19 08:50 INR, PTT INR 0.98 (0.83-1.09) 05/28/19 22:15 Imaging - Results Cat Scan: Image Reviewed Problem List - Problems (1) Syncope and collapse Assessment/Plan: ?? New onset [place] Patient signed out AMA Need MRI brain with no Morales EEG No AEd Seizure precaution I called [facility] patient cell with no answer Thanks Giles Garland MD Code(s): R55 - SYNCOPE AND COLLAPSE
--- NOTE | 2019-05-30 16:50 | DS ---
Physical Exam: SUBJECTIVE:no fever or chills. denies any CP or SOB. denies dizziness. she reports feeling dizzy ( can't specify ) before her LOC. Also, she saw a bird that no one else saw before she passed out. she woke up wet. not clear of duration of LOC. denies taking Ecstasy but thinks the positive urine is frm a tea that she takes ( [place] she does not provide the name of the tea OBJECTIVE: Last Vital Signs Temp Pulse Resp BP Pulse Ox 98.3 F 78 18 114/70 97 05/29/19 08:31 05/29/19 08:36 05/29/19 08:31 05/29/19 08:36 05/29/19 08:21 PHYSICAL EXAM Physical Exam: NAD, awake, alert. cooperative. MMM, no LAP in neck . slightly ertyhematous oropharynx. no edema in uvula. CV: RRR, no MRG LUngs: CTAB Abd: soft, NT, ND , NL BS . reducible small umbilical hernia ( 1 cm ) Ext: No edema or erythema, no track rodas. DP and RP 2+ b/l. no rash. AICS felt under the skin in L lower posterior axillary area LABS CBC,CMP WBC 4.6 K/mm3 (4.0-10.0) 05/29/19 08:50 RBC 3.50 M/mm3 (3.60-5.2) L 05/29/19 08:50 Hgb 10.5 GM/dL (10.7-15.3) L 05/29/19 08:50 Hct 31.1 % (32.4-45.2) L 05/29/19 08:50 MCV 88.7 fl (80-96) 05/29/19 08:50 MCH 30.0 pg (25.7-33.7) 05/29/19 08:50 MCHC 33.8 g/dl (32.0-36.0) 05/29/19 08:50 RDW 13.7 % (11.6-15.6) 05/29/19 08:50 Plt Count 196 K/MM3 (134-434) 05/29/19 08:50 MPV 8.0 fl (7.5-11.1) 05/29/19 08:50 Absolute Neuts (auto) 2.9 K/mm3 (1.5-8.0) 05/29/19 08:50 Neutrophils % 63.3 % (42.8-82.8) 05/29/19 08:50 Lymphocytes % 26.1 % (8-40) D 05/29/19 08:50 Monocytes % 10.2 % (3.8-10.2) 05/29/19 08:50 Eosinophils % 0.0 % (0-4.5) 05/29/19 08:50 Basophils % 0.4 % (0-2.0) 05/29/19 08:50 Nucleated RBC % 0 % (0-0) 05/29/19 08:50 Sodium 139 mmol/L (136-145) 05/29/19 08:50 Potassium 4.3 mmol/L (3.5-5.1) 05/29/19 08:50 Chloride 105 mmol/L (98-107) 05/29/19 08:50 Carbon Dioxide 28 mmol/L (21-32) 05/29/19 08:50 Anion Gap 6 MMOL/L (8-16) L 05/29/19 08:50 BUN 7.9 mg/dL (7-18) 05/29/19 08:50 Creatinine 0.7 mg/dL (0.55-1.3) 05/29/19 08:50 Est GFR (CKD-EPI)AfAm 124.73 05/29/19 08:50 Est GFR (CKD-EPI)NonAf 107.62 05/29/19 08:50 POC Glucometer 117 UNITS (80-120) 05/28/19 22:03 Random Glucose 100 mg/dL (74-106) 05/29/19 08:50 Calcium 7.9 mg/dL (8.5-10.1) L 05/29/19 08:50 Phosphorus 3.6 mg/dL (2.5-4.9) 05/29/19 08:50 Magnesium 2.1 mg/dL (1.8-2.4) 05/29/19 08:50 Total Bilirubin 0.4 mg/dL (0.2-1) 05/29/19 08:50 AST 13 U/L (15-37) L 05/29/19 08:50 ALT 13 U/L (13-61) 05/29/19 08:50 Alkaline Phosphatase 98 U/L (45-117) 05/29/19 08:50 Creatine Kinase 102 U/L (26-192) 05/28/19 22:15 Troponin I < 0.02 ng/ml (0.00-0.05) 05/28/19 22:15 Total Protein 5.8 g/dl (6.4-8.2) L 05/29/19 08:50 Albumin 3.1 g/dl (3.4-5.0) L 05/29/19 08:50 Serum , Qual Negative 05/28/19 22:15 Imaging: Cxray reviewed. CT head report pending read EKG: sinus , QTC. 500, [place]l [place], No ST or TW changes HOSPITAL COURSE: Date of Admission:05/29/19 Pt is a 43 yo F, with PMH of prolonged QT (AICD- [facility] had polymorphic vtac and torsades, post V fib arrest 2014), who is presenting via EMS from home after LOC with symptoms that sounded like a seizure episode (aura, LOC, body spasms, urinary incontinence lasting 1-2min followed by state of dze/ confusion when the patient came to). Patient admitted to overdosing on wellburtin (which she got off an internet consult site) and was also found to have MDMA in her urine (though she denied taking it). Her neuro exam was normal and her ICD interrogation showed no shocks since placement. Neuro was consuled and an EEG was ordered, the patient was admitted to tele. The patient's labs were unremarkable except for slight hyponatremia which may have been due to the MDMA. The next morning the patient signed out AMA before neurology could assess her. The neurologist attempted to reach the patient by cell phone but was unable to contact her. Date of Discharge: 05/30/19 Minutes to complete discharge: 40 Discharge Summary Problems reviewed: Yes Reason For Visit: LONG QT SYNDROME, SYNCOPE AND COLLAPSE Condition: Stable - Instructions Diet, Activity, Other Instructions: - You left against medical advise taking the risks that we talked about - please stop taking bupropion - you can resume your prozac tomorrow - I referred you to a heart doctor , Dr. Oreilly, as you need regualr follow up given your cardiac history and AICD placement - please follow with neurologist, dr. Vaughn , as we have not decided if youhad a seizure or not. - avoid any drugs and alcohol as well - if you have any palpitations, any shortness of breath or hallucinations or if your AICD fires, please come back to ER - follow up with your pcp in 1-2 days Referrals: Nate Oreilly MD [Staff Physician] - 1 Week Kevin Vaughn DO [Staff Physician] - 1 Week Disposition: AGAINST MEDICAL ADVICE - Home Medications Comprehensive Discharge Medication List: Ambulatory Orders Fluoxetine HCl [Prozac] 40 mg PO DAILY 05/29/19 This patient is new to me today: No Emergency Visit: Yes ED Registration Date: 05/29/19 Care time: The patient presented to the Emergency Department on the above date and was hospitalized for further evaluation of their emergent condition. Critical Care patient: No - Discharge Referral Referred to [facility] Med P.C.: No ATTENDING PHYSICIAN STATEMENT I saw and evaluated the patient. I reviewed the resident's note and discussed the case with the resident. I agree with the resident's findings and plan as documented. SUBJECTIVE: OBJECTIVE: ASSESSMENT AND PLAN:
== END 2019-05-29 10:35 | disposition left against medical advice (07) | DRG 918 ==
LOC: JER 21:33 → JERBED 23:34 → J4W 05-29 02:07 → OBSVTOIN 05-29 02:11
PROVIDERS: ADMIT Internal Medicine; ATTEND Internal Medicine
DX: T43.294A Poisoning by other antidepressants, undetermined, initial encounter (principal); E87.1 Hypo-osmolality and hyponatremia; R55 Syncope and collapse; I45.81 Long QT syndrome; R56.9 Unspecified convulsions; F32.9 Major depressive disorder, single episode, unspecified; R51 Headache; I49.9 Cardiac arrhythmia, unspecified; M19.90 Unspecified osteoarthritis, unspecified site; Z95.810 Presence of automatic (implantable) cardiac defibrillator
CPT/HCPCS: 36415; 70450-TC; 71046-TC-FY; 80053; 80307; 81003; 82550; 82962; 83735; 84100; 84484; 84703; 85025; 85610; 87086; 87186; 93005; 93010; 99285-25; G0378; J7030

== ENCOUNTER 2020-07-17 10:35 | Inpatient (IN) | payer OTHER ==
[2020-07-17 10:50] VITALS: BMI 21.6
[2020-07-17] MEDS ORDERED: SODIUM CHLORIDE 1,000 ML IV STA (11:15)
[2020-07-17] MEDS ORDERED: ACETAMINOPHEN 1000 MG/100 ML VIAL (NON FORMULARY) IVPB ONE (11:15)
[2020-07-17] MEDS ORDERED: ACETAMINOPHEN INJECTION 100 ML IVPB ONE (11:22)
[2020-07-17 11:49] LABS: BASO % 0.6 % (0-2.0); EOS % 1.8 % (0-4.5); HEMOGLOBIN 12.4 GM/dL (10.7-15.3); MCH 30.6 pg (25.7-33.7); MCHC 34.4 g/dl (32.0-36.0); MEAN PLT VOLUME 8.9 fl (7.5-11.1); NEUT % 85.6 % (42.8-82.8); PLATELET COUNT 214 K/MM3 (134-434); RBC 4.04 M/mm3 (3.60-5.2); WHITE BLOOD COUNT 10.4 K/mm3 (4.0-10.0)
[2020-07-17 12:49] LABS: CHLORIDE 105 mmol/L (98-107); SODIUM 140 mmol/L (136-145)
[2020-07-17 12:51] LABS: BLOOD UREA NITROGEN 8.3 mg/dL (7-18); CALCIUM 8.6 mg/dL (8.5-10.1); CO2 27 mmol/L (21-32); MAGNESIUM 2.4 mg/dL (1.8-2.4)
[2020-07-17 12:52] LABS: GLUCOSE,RANDOM 133 mg/dL (74-106)
[2020-07-17 12:54] LABS: SGPT/ALT 16 U/L (13-61)
[2020-07-17 12:55] LABS: CREATININE 1.2 mg/dL (0.55-1.3); SGOT/AST 15 U/L (15-37)
[2020-07-17 12:56] LABS: BILIRUBIN,TOTAL 0.4 mg/dL (0.2-1); TOT PROT 6.9 g/dl (6.4-8.2)
[2020-07-17 12:57] LABS: ALK PHOS 78 U/L (45-117)
[2020-07-17 13:01] LABS: ANION GAP 8 MMOL/L (8-16)
[2020-07-17 13:02] LABS: POTASSIUM 2.9 mmol/L (3.5-5.1)
[2020-07-17] MEDS ORDERED: POTASSIUM CHLORIDE TABS 20 MEQ TABLET.ER (FP) PO ONE (13:03)
[2020-07-17] MEDS ORDERED: POTASSIUM CHLORIDE TABS 10 MEQ TABLET.ER (FP) ONE (13:24)
[2020-07-17] MEDS ORDERED: KCL 10 MEQ IVPB 30 MEQ/300 ML INFUS.BAG IVPB ONE (15:49)
[2020-07-17] MEDS: KCL 10 MEQ IVPB 10 MEQ/100 ML INFUS.BAG IVPB SCH ×3 (15:55→17:30)
[2020-07-17] MEDS ORDERED: MAGNESIUM SULF 50% (8.12 MEQ/2 ML-1 GM VIAL) IVPB ONE (17:26)
[2020-07-17] MEDS ORDERED: MAGNESIUM SULFATE IN WATER 2 GM/50 ML IVPB IVPB ONE (17:34)
[2020-07-17 20:02] LABS: POTASSIUM 3.9 mmol/L (3.5-5.1)
[2020-07-17 20:03] LABS: CALCIUM 8.2 mg/dL (8.5-10.1)
[2020-07-17 20:04] LABS: BLOOD UREA NITROGEN 5.9 mg/dL (7-18)
[2020-07-17 20:07] LABS: CREATININE 0.9 mg/dL (0.55-1.3)
[2020-07-18 01:18] VITALS: TEMP 97.3
[2020-07-18] MEDS ORDERED: MELATONIN 5 MG TABLETS PO ONE (03:20)
[2020-07-18] MEDS ORDERED: ACETAMINOPHEN 325 MG TABLET (FP) PO ONE (03:20)
[2020-07-18 07:00] LABS: HEMATOCRIT 34.6 % (32.4-45.2); HEMOGLOBIN 11.6 GM/dL (10.7-15.3); MCH 29.8 pg (25.7-33.7); MCHC 33.5 g/dl (32.0-36.0); MEAN CELL VOLUME 88.7 fl (80-96); MEAN PLT VOLUME 8.8 fl (7.5-11.1); PLATELET COUNT 179 K/MM3 (134-434); WHITE BLOOD COUNT 6.1 K/mm3 (4.0-10.0)
[2020-07-18 07:13] LABS: POTASSIUM 3.8 mmol/L (3.5-5.1)
[2020-07-18 07:15] LABS: CALCIUM 8.2 mg/dL (8.5-10.1)
[2020-07-18 07:16] LABS: MAGNESIUM 2.5 mg/dL (1.8-2.4)
[2020-07-18 07:17] LABS: ALBUMIN 3.8 g/dl (3.4-5.0)
[2020-07-18 07:20] LABS: BILIRUBIN,TOTAL 0.7 mg/dL (0.2-1); CREATININE 0.9 mg/dL (0.55-1.3); PHOSPHOROUS 3.4 mg/dL (2.5-4.9); TOT PROT 6.2 g/dl (6.4-8.2)
[2020-07-18 07:27] VITALS: BP 128/75; PULSE 66
[2020-07-18] MEDS ORDERED: ENOXAPARIN NA (PORCINE) 40 MG/0.4 ML DISP.SYRIN SQ SCH (10:00)
== END 2020-07-18 07:30 | disposition left against medical advice (07) | DRG 312 ==
LOC: JER 10:35 → JERBED 15:25
PROVIDERS: ATTEND Student in an Organized Health Care Education/Training Program
DX: R55 Syncope and collapse (principal); E87.6 Hypokalemia; I45.81 Long QT syndrome; Z95.810 Presence of automatic (implantable) cardiac defibrillator; F17.200 Nicotine dependence, unspecified, uncomplicated; F32.9 Major depressive disorder, single episode, unspecified; Z91.14 Patient's other noncompliance with medication regimen; Z53.29 Procedure and treatment not carried out because of patient's decision for other reasons
CPT/HCPCS: 36415; 70450-TC; 71045-TC-FY; 80048; 80053; 80307; 82550; 82553; 83735; 84100; 84484; 84703; 85025; 85027; 93005; 93010; 99285-25; C9803; J0131; U0003

== ENCOUNTER 2020-09-13 18:39 | Emergency (ER) | payer SELFPAY ==
[2020-09-13 18:52] VITALS: TEMP 97.9; BMI 19.1
[2020-09-13] MEDS ORDERED: LACTATED RINGERS SOLUTION 1,000 ML/1,000 ML INFUS.BAG IV STA (19:50)
[2020-09-13] MEDS ORDERED: ONDANSETRON 4 MG/2 ML VIAL IVPUSH ONE (19:50)
[2020-09-13] MEDS ORDERED: ONDANSETRON 4 MG/2 ML VIAL ONE (20:51)
[2020-09-13 21:05] LABS: BASO % 0.8 % (0-2.0); EOS % 3.8 % (0-4.5); HEMATOCRIT 31.4 % (32.4-45.2); HEMOGLOBIN 10.6 GM/dL (10.7-15.3); LYMPH % 17.2 % (8-40); MCH 29.6 pg (25.7-33.7); MCHC 33.8 g/dl (32.0-36.0); MEAN CELL VOLUME 87.6 fl (80-96); MEAN PLT VOLUME 9.3 fl (7.5-11.1); MONO % 6.5 % (3.8-10.2); NEUT % 71.7 % (42.8-82.8); PLATELET COUNT 371 K/MM3 (134-434); RBC 3.58 M/mm3 (3.60-5.2); RDW 13.3 % (11.6-15.6); WHITE BLOOD COUNT 6.1 K/mm3 (4.0-10.0)
[2020-09-13 21:13] LABS: CHLORIDE 101 mmol/L (98-107); POTASSIUM 3.2 mmol/L (3.5-5.1); SODIUM 135 mmol/L (136-145)
[2020-09-13 21:15] LABS: ALBUMIN 3.5 g/dl (3.4-5.0); ANION GAP 7 MMOL/L (8-16); BLOOD UREA NITROGEN 9.4 mg/dL (7-18); CALCIUM 8.9 mg/dL (8.5-10.1); CO2 27 mmol/L (21-32); GLUCOSE,RANDOM 138 mg/dL (74-106)
[2020-09-13 21:18] LABS: SGOT/AST 27 U/L (15-37); SGPT/ALT 27 U/L (13-61)
[2020-09-13 21:19] LABS: CREATININE 0.8 mg/dL (0.55-1.3)
[2020-09-13 21:20] LABS: BILIRUBIN,TOTAL 0.2 mg/dL (0.2-1)
[2020-09-13] MEDS ORDERED: POTASSIUM CHLORIDE ORAL LIQUID 20 MEQ/15 ML PO ONE (21:20)
[2020-09-13 21:21] LABS: ALK PHOS 83 U/L (45-117)
[2020-09-13 21:24] LABS: N-TERMINAL BNP 166.8 pg/ml (5-125)
[2020-09-13 22:15] VITALS: BP 140/70; PULSE 102
== END 2020-09-13 22:17 | disposition home or self-care (01) ==
LOC: JER 18:39
PROC: 3E033GC Introduction of Other Therapeutic Substance into Peripheral Vein, Percutaneous Approach (ICD-10-PCS; principal; 2020-09-13)
DX: F19.10 Other psychoactive substance abuse, uncomplicated (principal); F11.20 Opioid dependence, uncomplicated; R42 Dizziness and giddiness
CPT/HCPCS: 36415; 80053; 82550; 83735; 83880; 84443; 84484; 84703; 85025; 93005; 93010; 99285-25